=== PATIENT | male | born 1980 | race African-American/Black ===

== ENCOUNTER 2017-09-28 20:08 | Emergency (ER) | payer SELFPAY ==
[2017-09-28] MEDS ORDERED: AMOXicillin 250 MG CAP ONE (21:17)
[2017-09-28] MEDS ORDERED: Naproxen 500 MG TAB ONE (21:17)
[2017-09-28] MEDS ORDERED: HYDROcodone/Acetaminophen 10/325 mg Tablet ONE (21:17)
== END 2017-09-28 21:21 | disposition home or self-care (01) ==
LOC: MADERS 20:08
DX: K03.81 Cracked tooth (principal); K04.7 Periapical abscess without sinus; K08.89 Other specified disorders of teeth and supporting structures; K02.9 Dental caries, unspecified; I10 Essential (primary) hypertension; F17.210 Nicotine dependence, cigarettes, uncomplicated
CPT/HCPCS: 99282

== ENCOUNTER 2018-03-17 15:02 | Emergency (ER) | payer SELFPAY | END 2018-03-17 15:26 | disposition home or self-care (01) | LOC: MADERS 15:02 | DX: K02.9 Dental caries, unspecified (principal); I10 Essential (primary) hypertension; F17.210 Nicotine dependence, cigarettes, uncomplicated | CPT/HCPCS: 99282 ==

== ENCOUNTER 2021-07-08 20:39 | Emergency (ER) | payer OTHER, SELFPAY ==
[2021-07-08] MEDS ORDERED: Acetaminophen 325 MG TAB ONE ×2 (22:01→22:09)
[2021-07-08] MEDS ORDERED: Boostrix 0.5 ML (Tdap) VIAL ONE (22:01)
[2021-07-08] MEDS ORDERED: Lidocaine 1%/Epinephrine 1:100K 10 ML VIAL ONE (22:01)
== END 2021-07-08 23:11 | disposition left against medical advice (07) ==
LOC: MADERS 20:39
DX: S01.111A Laceration without foreign body of right eyelid and periocular area, initial encounter (principal); S40.011A Contusion of right shoulder, initial encounter; R00.0 Tachycardia, unspecified; I10 Essential (primary) hypertension; F17.210 Nicotine dependence, cigarettes, uncomplicated; Z23 Encounter for immunization; Z79.899 Other long term (current) drug therapy; V49.9XXA Car occupant (driver) (passenger) injured in unspecified traffic accident, initial encounter
CPT/HCPCS: 12013; 70450; 72125; 90471; 90715

== ENCOUNTER 2022-02-13 10:25 | Emergency (ER) | payer OTHER ==
[2022-02-13] MEDS ORDERED: Lidocaine 2% 20 ml MDV ONE (10:55)
[2022-02-13] MEDS ORDERED: Bacitracin 1 PK ONE (12:18)
== END 2022-02-13 12:29 | disposition home or self-care (01) ==
LOC: MADERS 10:25
DX: S67.192A Crushing injury of right middle finger, initial encounter (principal); S62.622B Displaced fracture of middle phalanx of right middle finger, initial encounter for open fracture; I10 Essential (primary) hypertension; F17.210 Nicotine dependence, cigarettes, uncomplicated; W31.89XA Contact with other specified machinery, initial encounter; Y92.65 Oil rig as the place of occurrence of the external cause
CPT/HCPCS: 12001

== ENCOUNTER 2022-02-18 18:33 | Emergency (ER) | payer SELFPAY ==
[2022-02-18] MEDS ORDERED: Ibuprofen 800 MG TAB ONE (19:25)
[2022-02-18] MEDS ORDERED: traMADol HCl 50 MG TAB ONE (19:25)
== END 2022-02-18 20:58 | disposition home or self-care (01) ==
LOC: MADERS 18:33
DX: S62.632A Displaced fracture of distal phalanx of right middle finger, initial encounter for closed fracture (principal); F17.210 Nicotine dependence, cigarettes, uncomplicated; F17.220 Nicotine dependence, chewing tobacco, uncomplicated; W22.8XXA Striking against or struck by other objects, initial encounter; Y99.0 Civilian activity done for income or pay

== ENCOUNTER 2022-03-19 04:34 | Emergency (ER) | payer SELFPAY ==
[2022-03-19] MEDS ORDERED: cefTRIAXone\\ROCEPHIN 2 GM VIAL ONE (05:16)
[2022-03-19] MEDS ORDERED: Sodium Chloride 0.9% 100 ML ONE (05:17)
[2022-03-19 05:22] LABS: #Basophils 0.1 thou/uL (0.0-0.2); #Eosinphils 0.1 thou/uL (0.0-0.7); #Lymphocytes 1.3 thou/uL (1.20-3.40); #Monocytes 0.6 thou/uL (0.11-0.59); #Neutrophils 2.6 thou/uL (1.40-6.50); %Basophils 1.8 % (0.0-1.0); %Eosinophils 2.2 % (0.0-10.0); %Lymphocytes 27.8 % (21.0-51.0); %Monocytes 13.5 % (0.0-10.0); %Neutrophils 54.7 % (42.0-75.0); Hemoglobin 14.1 g/dL (14.0-18.0); Mean Corpuscular HGB CONC 32.2 g/dL (32.0-36.0); Mean Corpuscular Hemoglobin 28.7 pg (27.0-31.0); Mean Platelet Volume 10.6 fL (7.4-10.4); Platelet Count 176 thou/uL (130-400); RBC Distribution Width 12.5 % (11.5-14.5); Red Blood Cell (RBC) Count 4.92 mill/uL (4.70-6.10); White Blood Cell (WBC) Count 4.7 thou/uL (4.8-10.8)
[2022-03-19 05:40] LABS: ALT (SGPT) 114 U/L (8-55); AST (SGOT) 79 U/L (5-34); Albumin 4.1 g/dL (3.5-5.0); Alkaline Phosphatase 124 U/L (40-110); Anion Gap 13 mmol/L (10-20); BUN (Urea Nitrogen) 9 mg/dL (8.9-20.6); Bilirubin, Total 0.9 mg/dL (0.2-1.2); CRP (Inflammatory) 0.91 mg/dL (= or < 0.5); Calc. Creatinine Clearance 0 mL/min (70-130); Calcium 9.2 mg/dL (7.8-10.44); Carbon Dioxide 23 mmol/L (22-29); Chloride 104 mmol/L (98-107); Estimated GFR 81; Globulin 3.4 g/dL (2.4-3.5); Glucose 110 mg/dL (70-105); Potassium 3.7 mmol/L (3.5-5.1); Protein, Total 7.5 g/dL (6.0-8.3); Sodium 136 mmol/L (136-145)
[2022-03-19] MEDS ORDERED: Sodium Chloride 0.9% 250 ML 500 ML ONE (06:06)
[2022-03-19] MEDS ORDERED: Sodium Chloride 0.9% 1,000 ML ONE (06:37)
[2022-03-19] MEDS ORDERED: Ondansetron PF 4 MG/2 ML Vial ONE (06:37)
[2022-03-19] MEDS ORDERED: Morphine 4 MG/ML VIAL ONE (06:37)
[2022-03-19 07:50] LABS: SARS-CoV-2 NAA Rapid Test Not Detected (NotDetected)
== END 2022-03-19 10:28 | disposition home or self-care (01) ==
LOC: MADERS 04:34
DX: T81.40XA Infection following a procedure, unspecified, initial encounter (principal); L02.511 Cutaneous abscess of right hand; F17.210 Nicotine dependence, cigarettes, uncomplicated; F17.220 Nicotine dependence, chewing tobacco, uncomplicated; Z20.822 Contact with and (suspected) exposure to COVID-19
CPT/HCPCS: 80053; 83605; 85025; 85652; 86140; 87040; 87070; 87077; 87186; 87205; 94760; J0696; J2270; J2405; J3370; J3490; J7050; U0002